=== PATIENT | male | born 1990 | race Two or more races ===

== ENCOUNTER 2019-06-14 08:28 | Emergency (ER) | payer MEDICAID, OTHER ==
[~2019-06-14] VITALS: Ht 175.3 cm; Wt 65.8 kg
[~2019-06-14 08:28] MED LIST: ACET1TAB14 PO
[2019-06-14 09:03] VITALS: BP 147/98
[2019-06-14] MEDS ORDERED: TRAMADOL HCL 50 MG TABLET PO ONE (09:30)
[2019-06-14] MEDS ORDERED: TRAMADOL HCL 50 MG TABLET ONE (10:04)
== END 2019-06-14 10:09 | disposition home or self-care (01) ==
LOC: ER 08:29
DX: M54.40 Lumbago with sciatica, unspecified side (principal); G89.29 Other chronic pain; F17.210 Nicotine dependence, cigarettes, uncomplicated; Z79.899 Other long term (current) drug therapy

== ENCOUNTER 2019-10-25 08:29 | Emergency (ER) | payer MEDICAID, OTHER ==
[~2019-10-25] VITALS: Ht 175.3 cm; Wt 65.8 kg
[2019-10-25 08:35] VITALS: BP 127/79
[2019-10-25] MEDS ORDERED: TRAMADOL HCL 50 MG TABLET ONE (08:45)
--- NOTE | 2019-10-25 08:53 | NUR ---
Patient discharged to home in stable condition. Written and verbal after care instructions given. Patient verbalizes understanding of instruction.
[2019-10-25] MEDS ORDERED: TRAMADOL HCL 50 MG TABLET PO ONE (09:00)
== END 2019-10-25 08:54 | disposition home or self-care (01) ==
LOC: ER 08:35
DX: G89.29 Other chronic pain (principal); M54.9 Dorsalgia, unspecified; F43.10 Post-traumatic stress disorder, unspecified; F17.200 Nicotine dependence, unspecified, uncomplicated

== ENCOUNTER 2019-12-09 22:16 | Emergency (ER) | payer OTHER ==
[~2019-12-09] VITALS: Ht 175.3 cm; Wt 61.2 kg
--- NOTE | 2019-12-09 22:24 | NUR ---
BIB [facility] FOR C/O ANXIETY S/P SMOKING MARIJUANA."I'M HAVING MENTAL BREAK DOWN AND NERVOUS"; PT APPEARS ANXIOUS, WALKING AROUND ROOM. -SOB, NOT IN ANY DISTRESS, VSS, PENDING ER PROVIDER STEPHANI
--- NOTE | 2019-12-09 22:30 | NUR ---
PT GIVEN RESOURCES PER DR. DURAN
--- NOTE | 2019-12-09 22:36 | NUR ---
PT REFUSED TO SIGN D/C PAPERS
--- NOTE | 2019-12-09 22:37 | NUR ---
Patient discharged to home in stable condition. Written and verbal after care instructions given. Patient verbalizes understanding of instruction. Pt refused to signed, witnessed with 2nd RN.
[2019-12-09 22:41] VITALS: BP 104/75
== END 2019-12-09 22:44 | disposition home or self-care (01) ==
LOC: ER 22:20
DX: F19.10 Other psychoactive substance abuse, uncomplicated (principal); F17.200 Nicotine dependence, unspecified, uncomplicated; G40.909 Epilepsy, unspecified, not intractable, without status epilepticus; M54.9 Dorsalgia, unspecified; F43.10 Post-traumatic stress disorder, unspecified; Z60.2 Problems related to living alone; Z79.899 Other long term (current) drug therapy

== ENCOUNTER 2020-01-01 08:52 | Emergency (ER) | payer OTHER ==
[~2020-01-01] VITALS: Ht 170.2 cm; Wt 54.4 kg
[2020-01-01 08:55] VITALS: BP 100/64
--- NOTE | 2020-01-01 09:04 | NUR ---
Seen and evaluated by MD. with order to DC pt
--- NOTE | 2020-01-01 09:14 | NUR ---
PROVIDED W/ ORAL FLUIDS. DENIES SI/HI AND WOULD LIKE TO BE DISCHARGE. PT SEEN AND EVALUATED BY DR RUELAS. DISCHARGE IN STABLE CONDITION.
== END 2020-01-01 09:16 | disposition home or self-care (01) ==
LOC: ER 08:55
DX: F12.10 Cannabis abuse, uncomplicated (principal); E86.0 Dehydration; F17.200 Nicotine dependence, unspecified, uncomplicated; G40.909 Epilepsy, unspecified, not intractable, without status epilepticus; M54.9 Dorsalgia, unspecified; F43.10 Post-traumatic stress disorder, unspecified; Z60.2 Problems related to living alone; Z79.899 Other long term (current) drug therapy